=== PATIENT | female | born 1990 | race Caucasian/White ===

== ENCOUNTER 2017-01-31 20:20 | Inpatient (IN) | payer MEDICAID ==
[2017-01-31] MEDS ORDERED: EPINEPHRine HCL 1 mg/mL 1mL Amp SUBQ STA (20:33)
[2017-01-31] MEDS ORDERED: EPINEPHRine HCL 1 mg/mL 1mL Amp ONE (20:36)
--- NOTE | 2017-01-31 20:39 | ED Physician Chart ---
Chief Complaint/HPI - Patient Information Date Seen:: 01/31/17 Time Seen:: 20:34 Chief Complaint:: allergic rxn History of Present Illness:: pt has hx of many allergies to local plants as well as soy/wheat . she was eating some rice cakes a hr ago and after felt her throat get itchy and runny nose. now her voice seems hoarse and she has hives on post l thigh. she also had allergy shots 3 hrs ago. she had taken a loratadine this am as her only reg medicine to prevent regular local allergy troubles. she wasnt sure if she could take other meds bc of this. no fever. no edema. no leg pain. she denies gravid. Pt much later recalls that she had her Allergy SHots earlier today...and wonders whether that might be related too. I dw her that this seems much much more likely and why.. Allergies:: Allergies Allergy/AdvReac Type Severity Reaction Status Date / Time corn Allergy Verified 01/31/17 20:27 peanut Allergy Verified 01/31/17 20:27 soy Allergy Verified 01/31/17 20:27 wheat Allergy Verified 01/31/17 20:27 Vitals:: Vital Signs - 8 hr 01/31/17 20:21 Temp 98.1 F HR 91 RR 20 BP 131/78 O2 Sat % 99 Historian:: Patient Review of Systems - Review of Systems General/Constitutional: No fever, No chills, No weight loss, No weakness, No diaphoresis, No edema, No loss of appetite Skin: No skin lesions, Rash, No bruising Head: No headache, No light-headedness Eyes: No loss of vision, No pain, No diplopia ENT: No earache, No nasal drainage, Sore throat, No tinnitus Neck: No neck pain, No swelling, No thyromegaly, No stiffness, No mass noted Cardio Vascular: No chest pain, No palpitations, No PND, No orthopnea, No edema Pulmonary: No SOB, No cough, No sputum, No wheezing GI: No nausea, No vomiting, No diarrhea, No pain, No melena, No hematochezia, No constipation, No hematemesis G/U: No dysuria, No frequency, No hematuria Musculoskeletal: No bone or joint pain, No back pain, No muscle pain Endocrine: No polyuria, No polydipsia Psychiatric: No prior psych history, No depression, No anxiety, No suicidal ideation Hematopoietic: No bruising, No lymphadenopathy Allergic/Immuno: No urticaria, No angioedema Neurological: No syncope, No focal symptoms, No weakness, No paresthesia, No headache, No seizure, No dizziness, No confusion, No vertigo Past Medical History - Past Medical History Past Medical History: No significant medical hx, Other (multiple allegies) Social History: Non Smoker, No Drug Use Medication: Reviewed Family Medical History - Family Member Mother History Unknown: Yes Living Status: Hx Family Hypertension: Yes Physical Exam - Physical Examination General/Constitutional: Awake, Well-developed, well-nourished, Alert, No distress, GCS 15, Non-toxic appearing, Ambulatory Other Gen/Cons comments:: muffled voice. patch of hies at rt post thigh. 10 cm x 5 cm. pos glossy edema of uvulae. Head: Atraumatic Eyes: Lids, conjuctiva normal, PERRL, EOMI Skin: Nl inspection, No rash, No skin lesions, No ecchymosis, Well hydrated, No lymphadenopathy ENMT: External ears, nose nl, Nasal exam nl, Lips, teeth, gums nl Neck: Nontender, Full ROM w/o pain, No JVD, No nuchal rigidity, No bruit, No mass, No stridor Respiratory: Nl effort/Exclusion, Clear to Auscultation, No Wheeze/Rhonchi/Rales Cardio Vascular: RRR, No murmur, gallop, rubs, NL S1 S2 GI: No tenderness/rebounding/guarding, No organomegaly, No hernia, Normal BS's, Nondistended, No mass/bruits, No McBurney tenderness : No CVA tenderness Extremities: No tenderness or effusion, Full ROM, normal strength in all extremities, No edema, Normal digits & nails Neuro/Psych: Alert/oriented, DTR's symmetric, Normal sensory exam, Normal motor strength, Judgement/insight normal, Mood normal, Normal gait, No focal deficits Misc: normal gait, Normal back, No paraspinal tenderness Labs/Radiology/EKG Results - Lab Results Results: Laboratory Tests 02/01/17 02/01/17 05:18 05:18 WBC 5.5 RBC 4.53 Hgb 13.8 Hct 40.4 MCV 89.3 MCH 30.4 MCHC Differential 34.1 RDW 11.8 Plt Count 187 MPV 8.2 Neutrophils % 85.8 H Lymphocytes % 12.9 L Monocytes % 1.0 L Eosinophils % 0.2 Basophils % 0.1 Sodium 135 L Potassium 4.0 Chloride 107 Carbon Dioxide 24.8 Anion Gap 7.2 BUN 15 Creatinine 0.6 Est GFR ( Amer) > 60.0 Est GFR (Non-Af Amer) > 60.0 BUN/Creatinine Ratio 25.0 Glucose 150 H Calcium 8.9 ED Septic Shock - . Is Septic Shock (SBP<90, OR Lactate>4 mmol\L) present?: No - <6hrs of presentation: Vital Signs: Vital Signs - 8 hr 01/31/17 20:21 Temp 98.1 F HR 91 RR 20 BP 131/78 O2 Sat % 99 Reassessment (Disposition) - Reassessment Reassessment:: uvulae edema persists. have made call to [facility]..no reply received x last 1 /2 hr ..staff aware..following. no worse edema. no worse sob. overall seems improving (12;53am) case dw dr reyes who is admitting for cont steroid/benadryl and observation for airway edema. Reassessment Condition:: Improved - Diagnosis Diagnosis:: 1 allergic reaction w acute airway edema(uvulae edema) - Aftercare/Follow up Instructions Aftercare/Follow-Up Instructions:: Counseled pt regarding lab results/diagnosis & need follow up - Patient Disposition Admitted to:: Telemetry Condition at Disposition:: Improved ED Discharge Plan - Patient Disposition Admit/Discharge/Transfer: Acute Care w/in this hosp Condition at Disposition: Improved
[2017-02-01] MEDS: Sodium Chloride 0.9% 1,000 ML IV SCH ×2 (03:01→12:34)
[2017-02-01 05:47] LABS: % BASOPHILS 0.1 % (0.0-2.0); % EOSINOPHILS 0.2 % (0.0-5.0); % LYMPHOCYTES 12.9 % (20.0-50.0); % NEUTROPHILS 85.8 % (40.0-80.0); HEMATOCRIT 40.4 % (35.0-45.0); HEMOGLOBIN 13.8 gm/dL (11.7-15.5); MEAN CELL VOLUME 89.3 fl (81-100); MEAN CORPUSCULAR HEMOGLOBIN 30.4 pg (27.0-31.0); MEAN CORPUSCULAR HGB CONC 34.1 pg (28.0-36.0); MEAN PLATELET VOLUME 8.2 fl; NEUTROPHILE ABSOLUTE 4.7 Th/cmm (1.8-8.0); PLATELET COUNT 187 Th/cmm (150-400); RED BLOOD COUNT 4.53 Mil/cmm (3.80-5.10); RED CELL DISTRIBUTION WIDTH 11.8 % (11.5-20.0); WHITE BLOOD COUNT 5.5 Th/cmm (4.8-10.8)
[2017-02-01 06:03] LABS: ANION GAP 7.2 (7.0-16.0); BUN - UREA NITROGEN 15 mg/dL (7-25); CALCIUM SERUM 8.9 mg/dL (8.6-10.3); CARBON DIOXIDE 24.8 mEq/L (21.0-31.0); CHLORIDE 107 mEq/L (98-107); CREATININE - SERUM 0.6 mg/dL (0.6-1.2); GLUCOSE 150 mg/dL (70-105); SODIUM SERUM 135 mEq/L (136-145)
[2017-02-01] MEDS ORDERED: Magnesium Hydroxide (MOM) 30 mL UDC PO PRN (06:18)
[2017-02-01] MEDS ORDERED: Maalox 30 mL Cup PO PRN (06:18)
--- NOTE | 2017-02-01 22:43 | Discharge Summary ---
DATE OF DISCHARGE: 02/01/2017 DISCHARGE DIAGNOSES: 1. Anaphylaxis (resolved). 2. History of multiple allergies. 3. Hypernatremia. 4. Hyperglycemia. HOSPITAL COURSE: The patient is admitted due to allergic reaction. The patient was started on IV Pepcid and Benadryl. The patient responded to medications. No complaints of any hoarseness or difficulty breathing. The patient was discharged home on antihistamine-decongestion combination. The patient will follow up with PMD/PCP and allergists. JOB# [id number]
--- NOTE | 2017-02-02 01:44 | History & Physical ---
ADMIT DATE: 02/01/2017 CHIEF COMPLAINT: Allergic reaction. HISTORY OF PRESENT ILLNESS: The patient is a 26-year-old white female who has a history of many allergies. The patient says she was eating some rice cake prior to arrival to the ER and for her historical itchy and runny nose, and in the ER complains of hoarseness and hives. The patient says she also had an allergy shot 3 hours prior to arrival to the ER. The patient currently takes loratadine on a daily basis. No other acute complaints. ALLERGIES: CORN, PEANUT, SOY AND WHEAT. PAST MEDICAL HISTORY: Multiple allergies. SOCIAL HISTORY: No reports of smoking, alcohol or drug abuse. PHYSICAL EXAMINATION: VITAL SIGNS ON ADMISSION: Temperature 98.1, pulse 91, blood pressure 131/78, respiratory rate 20, and O2 sat is 98% on room air. GENERAL: The patient is awake and alert, nontoxic in appearance. HEENT: Normocephalic and atraumatic. Extraocular movements are intact. Oropharynx is clear. NECK: Supple. No thyromegaly. No lymphadenopathy. RESPIRATORY: Clear. No wheezes or rhonchi. CARDIOVASCULAR: S1 and S2. No murmurs or gallops. GASTROINTESTINAL: Soft and nontender. Positive bowel sounds. GENITOURINARY: No CVA tenderness and no suprapubic tenderness. BACK: No midline tenderness. EXTREMITIES: Equal pulses bilaterally. No cyanosis, clubbing or edema. SKIN: Negative. NEUROLOGIC: Cranial nerves intact. Extraocular motion is intact. Bilateral muscle strength equal. LABORATORY DATA ON ADMISSION: As follows: Hematology: WBC is 5.5, hemoglobin 13.8, hematocrit 40.4, platelet count of 187, 85% neutrophils, and 12% lymphocytes. Chemistry: Sodium 135, potassium 4.0, chloride 107, bicarb 24, anion gap 7.2, BUN 15, creatinine 0.6, GFR is more than 60, glucose 150, and calcium 8.9. IMPRESSION: 1. Anaphylaxis. 2. History of allergies, probably multiple. 3. Hyponatremia. 4. Hyperglycemia. PLAN: The patient will be admitted to med/surg unit and seen by Dr. Dupont. Further recommendations per consults. JOB# [id number]
== END 2017-02-01 18:25 | disposition home or self-care (01) | DRG 811 ==
LOC: ER 20:20 → TELE 02-01 01:10
PROVIDERS: ADMIT Preventive Medicine Preventive Medicine/Occupational Environmental Medicine; ATTEND Preventive Medicine Preventive Medicine/Occupational Environmental Medicine
DX: T78.2XXA Anaphylactic shock, unspecified, initial encounter (principal); E87.1 Hypo-osmolality and hyponatremia; R73.9 Hyperglycemia, unspecified; Z82.49 Family history of ischemic heart disease and other diseases of the circulatory system; Z91.010 Allergy to peanuts; Z91.018 Allergy to other foods
CPT/HCPCS: 36415-UA; 80048-TC; 85025-TC; 96374; 96375; J0171; J1200; J2930; J3490; J7030

== ENCOUNTER 2017-02-05 11:21 | Emergency (ER) | payer MEDICAID ==
[2017-02-05 12:01] LABS: URINE BILIRUBIN NEGATIVE (NEGATIVE); URINE BLOOD NEGATIVE (NEGATIVE); URINE COLOR YELLOW; URINE GLUCOSE (UA) NEGATIVE (NEGATIVE); URINE KETONE NEGATIVE (NEGATIVE); URINE PROTEIN NEGATIVE (NEGATIVE); URINE UROBILINOGEN 0.2 E.U./dL (0.2 - 1.0)
[2017-02-05 12:21] LABS: % BASOPHILS 0.1 % (0.0-2.0); % EOSINOPHILS 5.4 % (0.0-5.0); % LYMPHOCYTES 38.1 % (20.0-50.0); % MONOCYTES 8.2 % (2.0-10.0); % NEUTROPHILS 48.2 % (40.0-80.0); HEMATOCRIT 42.5 % (35.0-45.0); HEMOGLOBIN 14.2 gm/dL (11.7-15.5); MEAN CELL VOLUME 90.4 fl (81-100); MEAN CORPUSCULAR HEMOGLOBIN 30.1 pg (27.0-31.0); MEAN CORPUSCULAR HGB CONC 33.3 pg (28.0-36.0); MEAN PLATELET VOLUME 7.9 fl; NEUTROPHILE ABSOLUTE 2.1 Th/cmm (1.8-8.0); PLATELET COUNT 194 Th/cmm (150-400); RED CELL DISTRIBUTION WIDTH 11.8 % (11.5-20.0)
[2017-02-05 12:24] LABS: WHITE BLOOD COUNT 4.2 Th/cmm (4.8-10.8)
[2017-02-05 12:43] LABS: INR 1.01 (0.5-1.4); PROTHROMBIN TIME (TEST) 10.5 SECONDS (9.5-11.5)
[2017-02-05 12:45] LABS: ALB/GLOB RATIO 1.4 (1.0-1.8); ALKALINE PHOSPHATASE 52 U/L (34-104); BILIRUBIN,TOTAL 0.4 mg/dL (0.3-1.0); BUN - UREA NITROGEN 14 mg/dL (7-25); CALCIUM SERUM 9.1 mg/dL (8.6-10.3); CARBON DIOXIDE 28.9 mEq/L (21.0-31.0); CHLORIDE 104 mEq/L (98-107); CREATININE - SERUM 0.7 mg/dL (0.6-1.2); GLUCOSE 91 mg/dL (70-105); POTASSIUM SERUM 3.9 mEq/L (3.5-5.1); SGOT 15 U/L (13-39); SGPT/ALT 9 U/L (7-52); SODIUM SERUM 134 mEq/L (136-145)
[2017-02-05 12:56] LABS: CHOLESTEROL 143 mg/dL (<200); TRIGLYCERIDES 79 mg/dL (<150)
--- NOTE | 2017-02-05 13:13 | ED Physician Chart ---
Chief Complaint/HPI - Patient Information Date Seen:: 02/05/17 Time Seen:: 12:10 Chief Complaint:: BLOODY STOOL History of Present Illness:: THIS IS A 26 YO FEMALE WITH CONCERN ABOUT A BLOODY STOOL THIS AM. SHE DENIES HAVING ANY PREVIOUS RECTAL BLEEDING, DIARRHEA, BOWEL DISEASE. SHE DENIES HAVING ANY ABDOMINAL SURGERY IN THE PAST. SHE DENIES HYPERTENSION AND HEART DISEASE. SHE DENIES RECTAL PAIN BUT NOW HAS SOME LOWER ABDOMINAL PAIN. SHE DENIES AND DENIES PAINFUL URINATION. Allergies:: Allergies Allergy/AdvReac Type Severity Reaction Status Date / Time corn Allergy Verified 01/31/17 20:27 peanut Allergy Verified 01/31/17 20:27 soy Allergy Verified 01/31/17 20:27 wheat Allergy Verified 01/31/17 20:27 Vitals:: Vital Signs - 8 hr 02/05/17 11:51 Temp 98.4 F HR 68 RR 17 BP 118/74 O2 Sat % 97 Historian:: Patient Review:: Nurse's Note Reviewed Review of Systems - Review of Systems General/Constitutional: No fever, No chills, No weight loss, No weakness, No diaphoresis, No edema, No loss of appetite Skin: No skin lesions, No rash, No bruising Head: No headache, No light-headedness Eyes: No loss of vision, No pain, No diplopia ENT: No earache, No nasal drainage, No sore throat, No tinnitus Neck: No neck pain, No swelling, No thyromegaly, No stiffness, No mass noted Cardio Vascular: No chest pain, No palpitations, No PND, No orthopnea, No edema Pulmonary: No SOB, No cough, No sputum, No wheezing GI: No nausea, No vomiting, No diarrhea, Pain, No melena, No hematochezia, No constipation, No hematemesis G/U: No dysuria, No frequency, No hematuria Musculoskeletal: No bone or joint pain, No back pain, No muscle pain Endocrine: No polyuria, No polydipsia Psychiatric: No prior psych history, No depression, No anxiety, No suicidal ideation Hematopoietic: No bruising, No lymphadenopathy Allergic/Immuno: No urticaria, No angioedema Neurological: No syncope, No focal symptoms, No weakness, No paresthesia, No headache, No seizure, No dizziness, No confusion, No vertigo Past Medical History - Past Medical History Obtainable: Yes Past Medical History: No significant medical hx Family History: None Social History: Non Smoker, No Alcohol, No Drug Use, Employed Surgical History: None Psychiatricy History: None Medication: Reviewed Family Medical History - Family Member Mother History Unknown: Yes Living Status: Hx Family Hypertension: Yes Physical Exam - Physical Examination General/Constitutional: Awake, Well-developed, well-nourished, Alert, No distress, GCS 15, Non-toxic appearing, Ambulatory Head: Atraumatic Eyes: Lids, conjuctiva normal, PERRL, EOMI Skin: Nl inspection, No rash, No skin lesions, No ecchymosis, Well hydrated, No lymphadenopathy ENMT: External ears, nose nl, Nasal exam nl, Lips, teeth, gums nl Neck: Nontender, Full ROM w/o pain, No JVD, No nuchal rigidity, No bruit, No mass, No stridor Respiratory: Nl effort/Exclusion, Clear to Auscultation, No Wheeze/Rhonchi/Rales Cardio Vascular: RRR, No murmur, gallop, rubs, NL S1 S2 GI: No organomegaly, No hernia, Normal BS's, Nondistended, No mass/bruits, No McBurney tenderness Other GI comments:: LOWER ABDOMINAL TENDERNESS : No CVA tenderness Extremities: No tenderness or effusion, Full ROM, normal strength in all extremities, No edema, Normal digits & nails Neuro/Psych: Alert/oriented, DTR's symmetric, Normal sensory exam, Normal motor strength, Judgement/insight normal, Mood normal, Normal gait, No focal deficits Misc: normal gait, Normal back, No paraspinal tenderness Labs/Radiology/EKG Results - Lab Results Results: Laboratory Tests 02/05/17 02/05/17 02/05/17 11:40 12:05 12:05 WBC RBC Hgb Hct MCV MCH MCHC Differential RDW Plt Count MPV Neutrophils % Lymphocytes % Monocytes % Eosinophils % Basophils % PT 10.5 INR 1.01 PTT (Actin FS) 25.9 L Sodium Potassium Chloride Carbon Dioxide Anion Gap BUN Creatinine Est GFR ( Amer) Est GFR (Non-Af Amer) BUN/Creatinine Ratio Glucose Calcium Total Bilirubin AST ALT Alkaline Phosphatase Troponin I Total Protein Albumin Globulin Albumin/Globulin Ratio Triglycerides 79 Cholesterol 143 LDL Cholesterol Direct 88 HDL Cholesterol 45 Urine Source CLEAN C Urine Color YELLOW Urine Clarity CLEAR Urine pH 7.0 Ur Specific [place] 1.010 Urine Protein NEGATIVE Urine Glucose (UA) NEGATIVE Urine Ketones NEGATIVE Urine Blood NEGATIVE Urine Nitrate NEGATIVE Urine Bilirubin NEGATIVE Urine Urobilinogen 0.2 Ur Leukocyte Esterase NEGATIVE 02/05/17 02/05/17 02/05/17 12:05 12:05 12:05 WBC 4.2 L D RBC 4.70 Hgb 14.2 Hct 42.5 MCV 90.4 MCH 30.1 MCHC Differential 33.3 RDW 11.8 Plt Count 194 MPV 7.9 Neutrophils % 48.2 Lymphocytes % 38.1 Monocytes % 8.2 Eosinophils % 5.4 H Basophils % 0.1 PT INR PTT (Actin FS) Sodium 134 L Potassium 3.9 Chloride 104 Carbon Dioxide 28.9 Anion Gap 5.0 L BUN 14 Creatinine 0.7 Est GFR ( Amer) > 60.0 Est GFR (Non-Af Amer) > 60.0 BUN/Creatinine Ratio 20.0 Glucose 91 Calcium 9.1 Total Bilirubin 0.4 AST 15 ALT 9 Alkaline Phosphatase 52 Troponin I 0.01 Total Protein 6.8 Albumin 4.0 Globulin 2.8 Albumin/Globulin Ratio 1.4 Triglycerides Cholesterol LDL Cholesterol Direct HDL Cholesterol Urine Source Urine Color Urine Clarity Urine pH Ur Specific [place] Urine Protein Urine Glucose (UA) Urine Ketones Urine Blood Urine Nitrate Urine Bilirubin Urine Urobilinogen Ur Leukocyte Esterase ED Septic Shock - . Is Septic Shock (SBP<90, OR Lactate>4 mmol\L) present?: No - <6hrs of presentation: Vital Signs: Vital Signs - 8 hr 02/05/17 11:51 Temp 98.4 F HR 68 RR 17 BP 118/74 O2 Sat % 97 Reassessment (Disposition) - Reassessment Reassessment Condition:: Unchanged - Diagnosis Diagnosis:: RECTAL BLEEDING ABDOMINAL PAIN - Aftercare/Follow up Instructions Aftercare/Follow-Up Instructions:: Counseled pt regarding lab results/diagnosis & need follow up, Refer to Discharge Instructions, Counseled pt & family regarding lab results/diagnosis & need follow up Medication Prescribed:: TO SEE HER GI ACTIVE DIRECTORY ARCHITECT - Patient Disposition Discharge/Transfer:: Home Condition at Disposition:: Unchanged ED Discharge Plan - Patient Disposition Admit/Discharge/Transfer: PT DISCHARGED HOME Condition at Disposition: Unchanged
== END 2017-02-05 13:30 | disposition home or self-care (01) ==
LOC: ER 11:21
DX: K62.5 Hemorrhage of anus and rectum (principal); R10.30 Lower abdominal pain, unspecified; Z91.010 Allergy to peanuts; Z91.02 Food additives allergy status
CPT/HCPCS: 36415-UA; 80053-TC; 80061-TC; 81003-TC; 84443-TC; 84484-TC; 85025-TC; 85610-TC; 85730-TC; 86592-TC; Z7502